=== PATIENT | female | born 1970 | race Caucasian/White ===

== ENCOUNTER 2017-07-17 10:56 | Emergency (ER) | payer OTHER ==
[~2017-07-17] VITALS: Ht 165.1 cm; Wt 72.6 kg
[2017-07-17 11:00] VITALS: BP 125/90
== END 2017-07-17 16:37 | disposition home or self-care (01) ==
LOC: ER 10:56 → EDUNIT# 10:56 → ER 13:51
DX: R07.89 Other chest pain (principal); Z87.11 Personal history of peptic ulcer disease